=== PATIENT | male | born 1965 | race Caucasian/White ===

== ENCOUNTER → 2019-04-21 | Outpatient (CLI) | payer OTHER | LOC: CAT 08:22 | DX: Z13.6 Encounter for screening for cardiovascular disorders (principal); E78.00 Pure hypercholesterolemia, unspecified; I25.10 Atherosclerotic heart disease of native coronary artery without angina pectoris ==

== ENCOUNTER → 2019-11-20 | Outpatient (CLI) | payer OTHER | LOC: LAB 08:11 | PROVIDERS: ATTEND Family Medicine | DX: Z11.59 Encounter for screening for other viral diseases (principal) ==